=== PATIENT | male | born 1965 | race Two or more races ===

== ENCOUNTER 2016-05-16 10:47 | Inpatient (IN) | payer SELFPAY ==
[2016-05-16] VITALS (21 sets, daily range): BP systolic 104–128; BP diastolic 66–95
[~2016-05-16] VITALS: Ht 177.8 cm; Wt 74.8 kg
[~2016-05-16 10:47] MED LIST: ATOR10TA PO; HYDR-429 PO; LORA1TAB82 PO; LOSA25TA13 PO; METF500T4 PO; NPH,100V8 SQ; TRAZ-147 PO
[2016-05-16] MEDS ORDERED: IV NS 0.9% 1,000 ML BAG IV ONE (11:00)
[2016-05-16 11:17] LABS: BASOPHILS % (AUTO) 0.2 % (0.0-2.0); DIFF TOTAL % 100 %; HEMATOCRIT 55 % (39-51); HEMOGLOBIN 18.4 g/dL (13.5-17.5); LYMPHOCYTES # (AUTO) 1.9 /CMM (0.8-4.8); LYMPHOCYTES % (AUTO) 34.7 % (20.0-44.0); MEAN CORPUSCULAR HEMOGLOBIN 35 PG (26.0-33.0); MEAN CORPUSCULAR HGB CONC 34 g/dl (31.0-36.0); MEAN CORPUSCULAR VOLUME 103 fL (80-96); MONOCYTES # (AUTO) 0.2 /CMM (0.1-1.30); NEUTROPHILS # (AUTO) 3.3 /CMM (1.8-8.9); NEUTROPHILS % (AUTO) 61.1 % (43.0-81.0); PLATELET COUNT (AUTO) 172 /CMM (150-450); RED BLOOD CELL COUNT(AUTO) 5.33 MIL/uL (4.5-6.0); WHITE BLOOD COUNT (AUTO) 5.4 K/uL (4.3-11.0)
[2016-05-16] MEDS ORDERED: IV SET PRIMARY 1 EA INFUS.SET MC ONE (11:17)
[2016-05-16] MEDS ORDERED: IV NS 0.9% 1,000 ML ONE (11:17)
[2016-05-16 11:32] LABS: BILIRUBIN,DIRECT 2.3 mg/dL (0.0-0.2); BILIRUBIN,TOTAL 3.1 mg/dL (0.2-1.0); CREATININE 0.9 mg/dL (0.6-1.3)
[2016-05-16 11:33] LABS: INDIRECT BILIRUBIN 0.8 mg/dL (0.0-1.1)
[2016-05-16 11:34] LABS: POTASSIUM 4.8 mmol/L (3.5-5.1); TROPONIN I 0.036 ng/mL (0.00-0.056)
[2016-05-16 11:35] LABS: TOTAL PROTEIN, SERUM 8.9 g/dL (6.4-8.2)
[2016-05-16 11:44] LABS: CALCIUM, SERUM 8.1 mg/dL (8.5-10.1)
[2016-05-16 11:46] LABS: BAND % (MANUAL) 1 % (0.0-5.0); EOSINOPHILS % (MANUAL) 1 % (0-4); LYMPHOCYTES % (MANUAL) 33 % (16-48); PLATELET ESTIMATE ADEQUATE
[2016-05-16 11:47] LABS: ANISOCYTOSIS 1+
[2016-05-16 11:48] LABS: INR 1.1 (0.87-1.13); PROTHROMBIN TIME 11.5 SECS (9.5-12.7)
[2016-05-16] MEDS ORDERED: INSULIN REGULAR, HUMAN 100 UNIT in IV NS 0.9% 99 ML IV PRN ×2 (12:00)
[2016-05-16] MEDS ORDERED: FAMO40TA7 PO (12:04)
[2016-05-16] MEDS ORDERED: IV SET PRIMARY PUMP SET 1 EA INFUS.SET MC ONE ×3 (12:09→18:13)
[2016-05-16] MEDS ORDERED: IV NS 0.9% 1,000 ML IV PRN (12:13)
[2016-05-16 12:30] LABS: PHOSPHORUS 5.2 mg/dL (2.5-4.9)
[2016-05-16] MEDS ORDERED: ONDANSETRON HCL/PF 4 MG/2 ML VIAL IVP PRN (12:30)
[2016-05-16] MEDS ORDERED: Z GUARD REMEDY 2 OZ OINT TP PRN (12:30)
[2016-05-16] MEDS ORDERED: ACETAMINOPHEN 325 MG TABLET PO PRN (12:30)
[2016-05-16] MEDS ORDERED: MAG HYDROX/AL HYDROX/SIMETH 30 ML UDC PO PRN (12:30)
[2016-05-16] MEDS ORDERED: MAGNESIUM HYDROXIDE 30 ML UDC PO PRN (12:30)
[2016-05-16] MEDS: ENOXAPARIN SODIUM 40 MG/0.4 ML DISP.SYRIN SQ SCH (13:39)
[2016-05-16] MEDS: BLOOD SUGAR DIAGNOSTIC 1 EACH STRIP IN SCH ×7 (16:16→23:24)
[2016-05-16] MEDS: IV D5/ 0.9% NACL 1,000 ML IV PRN (17:30)
[2016-05-16 17:51] LABS: CALCIUM, SERUM 7.7 mg/dL (8.5-10.1); CREATININE 0.7 mg/dL (0.6-1.3); PHOSPHORUS 2.5 mg/dL (2.5-4.9); POTASSIUM 3.8 mmol/L (3.5-5.1)
[2016-05-16] MEDS ORDERED: SECONDARY IV SET 1 EA INFUS.SET MC ONE (18:14)
[2016-05-16] MEDS ORDERED: AMIODARONE 900 MG in IV D5W 482 ML IV PRN (18:30)
[2016-05-16] MEDS ORDERED: AMIODARONE 150 MG in IV D5W 100 ML IV ONE (18:30)
[2016-05-16] MEDS: Magnesium 1GM/D5W 100ML PREMIX 100 ML IV SCH ×2 (18:38→20:04)
[2016-05-16] MEDS: LORAZEPAM INJ 2 MG/ML VIAL IV PRN (19:55)
[2016-05-16] MEDS: HYDROCODONE/APAP 5/325MG 1 EACH TABLET PO PRN (20:04)
[2016-05-16] MEDS: INS (REG) DRIP 100 U/100 ML NS IV PRN ×6 (20:20→22:24)
[2016-05-17] VITALS (32 sets, daily range): BP systolic 111–144; BP diastolic 62–90
[2016-05-17] MEDS: ZOLPIDEM TARTRATE 5 MG TABLET PO PRN (00:07)
[2016-05-17] MEDS: BLOOD SUGAR DIAGNOSTIC 1 EACH STRIP IN SCH ×9 (00:07→09:11)
[2016-05-17] MEDS: IV D5/ 0.9% NACL 1,000 ML IV PRN ×2 (01:58→08:59)
[2016-05-17] MEDS ORDERED: LORAZEPAM INJ 2 MG/ML VIAL IVP PRN (02:00)
[2016-05-17] MEDS: LORAZEPAM INJ 2 MG/ML VIAL IV PRN (02:05)
[2016-05-17 05:22] LABS: CALCIUM, SERUM 7.7 mg/dL (8.5-10.1); CREATININE 0.7 mg/dL (0.6-1.3); PHOSPHORUS 2.5 mg/dL (2.5-4.9); POTASSIUM 3.5 mmol/L (3.5-5.1)
[2016-05-17 05:24] LABS: THYROID STIMULATING HORMONE 2.187 uIU/mL (0.358-3.74)
[2016-05-17 05:52] LABS: BASOPHILS % (AUTO) 0.8 % (0.0-2.0); DIFF TOTAL % 100 %; EOSINOPHILS # (AUTO) 0.1 /CMM (0.0-0.7); EOSINOPHILS % (AUTO) 1.7 % (0.0-6.0); HEMATOCRIT 38 % (39-51); HEMOGLOBIN 13.5 g/dL (13.5-17.5); LYMPHOCYTES # (AUTO) 1.9 /CMM (0.8-4.8); LYMPHOCYTES % (AUTO) 30.2 % (20.0-44.0); MEAN CORPUSCULAR HEMOGLOBIN 35 PG (26.0-33.0); MEAN CORPUSCULAR HGB CONC 35 g/dl (31.0-36.0); MEAN CORPUSCULAR VOLUME 100 fL (80-96); MONOCYTES # (AUTO) 0.4 /CMM (0.1-1.30); MONOCYTES % (AUTO) 6.8 % (2.0-12.0); NEUTROPHILS # (AUTO) 3.7 /CMM (1.8-8.9); NEUTROPHILS % (AUTO) 60.5 % (43.0-81.0); PLATELET COUNT (AUTO) 94 /CMM (150-450); RED BLOOD CELL COUNT(AUTO) 3.82 MIL/uL (4.5-6.0); WHITE BLOOD COUNT (AUTO) 6.2 K/uL (4.3-11.0)
[2016-05-17] MEDS ORDERED: POTASSIUM CHLORIDE 10 MEQ/50 ML PREMIXED IVPB FOR PERIPHERAL LINE IV ONE (06:00)
[2016-05-17] MEDS ORDERED: POTASSIUM CL. PREMIX PERIPHER. 50 ML ONE (06:14)
[2016-05-17] MEDS ORDERED: IV SET PRIMARY PUMP SET 1 EA INFUS.SET MC ONE (06:29)
[2016-05-17 06:31] LABS: BAND % (MANUAL) 2 % (0.0-5.0); EOSINOPHILS % (MANUAL) 5 % (0-4); LYMPHOCYTES % (MANUAL) 28 % (16-48)
[2016-05-17 06:32] LABS: PLATELET ESTIMATE DECREASED
[2016-05-17] MEDS: PANTOPRAZOLE 40 MG TABLET.DR PO SCH (07:42)
[2016-05-17] MEDS: ENOXAPARIN SODIUM 40 MG/0.4 ML DISP.SYRIN SQ SCH (08:29)
[2016-05-17] MEDS ORDERED: DEXTROSE 50%-WATER 50 ML DISP.SYRIN IV PRN (10:30)
[2016-05-17 12:00] LABS: CALCIUM, SERUM 7.9 mg/dL (8.5-10.1); CREATININE 0.8 mg/dL (0.6-1.3); POTASSIUM 3.9 mmol/L (3.5-5.1)
[2016-05-17] MEDS: BLOOD SUGAR DIAGNOSTIC 1 EACH STRIP VI SCH ×3 (12:04→21:54)
[2016-05-17] MEDS: INSULIN REGULAR, HUMAN 100 UNIT/ML 3 ML VIAL SQ PRN ×2 (12:10→17:28)
[2016-05-17] MEDS: LORAZEPAM 1 MG TABLET PO PRN ×2 (13:20→23:08)
[2016-05-17] MEDS: METFORMIN 500 MG TABLET PO SCH (18:07)
[2016-05-17] MEDS ORDERED: LOSARTAN POTASSIUM 25 MG TABLET PO SCH (18:30)
[2016-05-17] MEDS ORDERED: ATORVASTATIN 10 MG TABLET PO SCH (18:30)
[2016-05-17] MEDS ORDERED: INSULIN DETEMIR 100 UNIT/ML CARTRIDGE SQ ONE (21:53)
[2016-05-17] MEDS: ATORVASTATIN 10 MG TABLET PO SCH (21:53)
[2016-05-17] MEDS: TRAZODONE 50 MG TABLET PO SCH (21:53)
[2016-05-17] MEDS ORDERED: INSULIN REGULAR, HUMAN 100 UNIT/ML 10 ML VIAL ONE (21:53)
[2016-05-17] MEDS: INSULIN DETEMIR 100 UNIT/ML CARTRIDGE SQ SCH (23:10)
[2016-05-17] MEDS: *INSULIN REGULAR(HUMULIN R)HUM 100 UNIT/ML VIAL SQ PRN (23:12)
[2016-05-18] VITALS (8 sets, daily range): BP systolic 103–125; BP diastolic 56–78
[2016-05-18] MEDS: ZOLPIDEM TARTRATE 5 MG TABLET PO PRN (01:12)
[2016-05-18] MEDS: BLOOD SUGAR DIAGNOSTIC 1 EACH STRIP VI SCH ×4 (06:59→21:41)
[2016-05-18] MEDS: INSULIN REGULAR, HUMAN 100 UNIT/ML 3 ML VIAL SQ PRN ×3 (07:01→17:27)
[2016-05-18] MEDS: PANTOPRAZOLE 40 MG TABLET.DR PO SCH (09:01)
[2016-05-18] MEDS: LOSARTAN POTASSIUM 25 MG TABLET PO SCH (09:02)
[2016-05-18] MEDS: ATORVASTATIN 10 MG TABLET PO SCH (09:02)
[2016-05-18] MEDS: LORAZEPAM 1 MG TABLET PO PRN (09:02)
[2016-05-18] MEDS: METFORMIN 500 MG TABLET PO SCH ×2 (09:02→17:27)
[2016-05-18] MEDS: ENOXAPARIN SODIUM 40 MG/0.4 ML DISP.SYRIN SQ SCH (09:04)
[2016-05-18] MEDS: HYDROCODONE/APAP 10/325MG 1 EA TABLET PO PRN (15:07)
[2016-05-18] MEDS ORDERED: APIXABAN 2.5 MG TABLET PO SCH (17:00)
[2016-05-18] MEDS: TRAZODONE 50 MG TABLET PO SCH (21:40)
[2016-05-18] MEDS: INSULIN DETEMIR 100 UNIT/ML CARTRIDGE SQ SCH (21:48)
[2016-05-18] MEDS: *INSULIN REGULAR(HUMULIN R)HUM 100 UNIT/ML VIAL SQ PRN (21:51)
[2016-05-18] MEDS: HYDROCODONE/APAP 5/325MG 1 EACH TABLET PO PRN (23:54)
[2016-05-19] VITALS (8 sets, daily range): BP systolic 90–115; BP diastolic 47–75
[2016-05-19] MEDS ORDERED: AMIODARONE HCL 200 MG TABLET PO ONE (01:30)
[2016-05-19] MEDS ORDERED: AMIODARONE HCL 200 MG TABLET ONE ×2 (01:37→02:14)
[2016-05-19] MEDS ORDERED: AMIODARONE HCL 200 MG TABLET PO STA (02:14)
[2016-05-19] MEDS ORDERED: DIGOXIN 0.25 MG TABLET ONE (02:39)
[2016-05-19] MEDS ORDERED: DIGOXIN 0.25 MG TABLET PO STA (02:39)
[2016-05-19] MEDS ORDERED: AMIODARONE 150 MG/3 ML VIAL IV ONE (04:10)
[2016-05-19] MEDS ORDERED: IV SET PRIMARY PUMP SET 1 EA INFUS.SET MC ONE (04:11)
[2016-05-19] MEDS: HYDROCODONE/APAP 5/325MG 1 EACH TABLET PO PRN (04:25)
[2016-05-19] MEDS: AMIODARONE 900 MG in IV D5W 482 ML IV PRN ×2 (04:45→10:17)
[2016-05-19] MEDS: PANTOPRAZOLE 40 MG TABLET.DR PO SCH (06:30)
[2016-05-19] MEDS: BLOOD SUGAR DIAGNOSTIC 1 EACH STRIP VI SCH ×4 (06:34→21:26)
[2016-05-19] MEDS: INSULIN REGULAR, HUMAN 100 UNIT/ML 3 ML VIAL SQ PRN ×2 (06:34→21:18)
[2016-05-19 08:09] LABS: BASOPHILS % (AUTO) 0.1 % (0.0-2.0); DIFF TOTAL % 100 %; EOSINOPHILS % (AUTO) 0.2 % (0.0-6.0); HEMATOCRIT 36 % (39-51); HEMOGLOBIN 12.6 g/dL (13.5-17.5); LYMPHOCYTES # (AUTO) 0.3 /CMM (0.8-4.8); MEAN CORPUSCULAR HEMOGLOBIN 35 PG (26.0-33.0); MEAN CORPUSCULAR HGB CONC 35 g/dl (31.0-36.0); MEAN CORPUSCULAR VOLUME 100 fL (80-96); MONOCYTES # (AUTO) 0.1 /CMM (0.1-1.30); MONOCYTES % (AUTO) 1.7 % (2.0-12.0); NEUTROPHILS # (AUTO) 5.1 /CMM (1.8-8.9); RED BLOOD CELL COUNT(AUTO) 3.58 MIL/uL (4.5-6.0); WHITE BLOOD COUNT (AUTO) 5.5 K/uL (4.3-11.0)
[2016-05-19 08:11] LABS: PLATELET COUNT (AUTO) 44 /CMM (150-450)
[2016-05-19] MEDS: LOSARTAN POTASSIUM 25 MG TABLET PO SCH (08:13)
[2016-05-19] MEDS: LORAZEPAM 1 MG TABLET PO PRN ×2 (08:15→18:08)
[2016-05-19] MEDS: METFORMIN 500 MG TABLET PO SCH ×2 (08:15→17:03)
[2016-05-19] MEDS: ENOXAPARIN SODIUM 40 MG/0.4 ML DISP.SYRIN SQ SCH (08:18)
[2016-05-19 08:19] LABS: CALCIUM, SERUM 7.9 mg/dL (8.5-10.1); POTASSIUM 3.8 mmol/L (3.5-5.1)
[2016-05-19] MEDS: ATORVASTATIN 10 MG TABLET PO SCH (08:29)
[2016-05-19] MEDS ORDERED: AMIODARONE 150 MG in IV D5W 100 ML IV ONE (09:30)
[2016-05-19] MEDS ORDERED: HYDROGEL DRESSING 90 GM TUBE TP PRN (10:00)
[2016-05-19] MEDS: HYDROGEL DRESSING 90 GM TUBE TP SCH ×2 (10:31→21:51)
[2016-05-19 11:27] LABS: BAND % (MANUAL) 9 % (0.0-5.0); EOSINOPHILS % (MANUAL) 1 % (0-4); LYMPHOCYTES % (MANUAL) 8 % (16-48); PLATELET ESTIMATE DECREASED
[2016-05-19] MEDS: HYDROCODONE/APAP 10/325MG 1 EA TABLET PO PRN (14:58)
[2016-05-19] MEDS: *INSULIN REGULAR(HUMULIN R)HUM 100 UNIT/ML VIAL SQ PRN (18:12)
[2016-05-19] MEDS: TRAZODONE 50 MG TABLET PO SCH (21:10)
[2016-05-19] MEDS: INSULIN DETEMIR 100 UNIT/ML CARTRIDGE SQ SCH (21:19)
[2016-05-20] VITALS: BP 101/56
[2016-05-20] MEDS: HYDROCODONE/APAP 5/325MG 1 EACH TABLET PO PRN ×4 (03:04→21:31)
[2016-05-20 04:00] VITALS: BP 97/55
[2016-05-20 06:58] LABS: BASOPHILS % (AUTO) 0.1 % (0.0-2.0); DIFF TOTAL % 100 %; EOSINOPHILS % (AUTO) 0.4 % (0.0-6.0); HEMATOCRIT 40 % (39-51); HEMOGLOBIN 13.8 g/dL (13.5-17.5); LYMPHOCYTES # (AUTO) 0.6 /CMM (0.8-4.8); LYMPHOCYTES % (AUTO) 8.8 % (20.0-44.0); MEAN CORPUSCULAR HEMOGLOBIN 35 PG (26.0-33.0); MEAN CORPUSCULAR HGB CONC 35 g/dl (31.0-36.0); MEAN CORPUSCULAR VOLUME 100 fL (80-96); MONOCYTES # (AUTO) 0.5 /CMM (0.1-1.30); MONOCYTES % (AUTO) 8.1 % (2.0-12.0); NEUTROPHILS # (AUTO) 5.4 /CMM (1.8-8.9); NEUTROPHILS % (AUTO) 82.6 % (43.0-81.0); PLATELET COUNT (AUTO) 86 /CMM (150-450); RED BLOOD CELL COUNT(AUTO) 3.95 MIL/uL (4.5-6.0); WHITE BLOOD COUNT (AUTO) 6.5 K/uL (4.3-11.0)
[2016-05-20 07:06] LABS: INR 1.11 (0.87-1.13)
[2016-05-20 08:00] VITALS: BP 114/62
[2016-05-20] MEDS: METFORMIN 500 MG TABLET PO SCH ×2 (08:24→16:11)
[2016-05-20] MEDS: PANTOPRAZOLE 40 MG TABLET.DR PO SCH (08:24)
[2016-05-20] MEDS: ENOXAPARIN SODIUM 40 MG/0.4 ML DISP.SYRIN SQ SCH (08:24)
[2016-05-20] MEDS: BLOOD SUGAR DIAGNOSTIC 1 EACH STRIP VI SCH ×4 (08:25→22:00)
[2016-05-20 09:29] LABS: ALBUMIN 2.9 g/dL (3.4-5.0); BILIRUBIN,TOTAL 1.3 mg/dL (0.2-1.0); CALCIUM, SERUM 8.3 mg/dL (8.5-10.1); CREATININE 0.9 mg/dL (0.6-1.3); POTASSIUM 3.2 mmol/L (3.5-5.1); TOTAL PROTEIN, SERUM 6.6 g/dL (6.4-8.2)
[2016-05-20] MEDS: INSULIN REGULAR, HUMAN 100 UNIT/ML 3 ML VIAL SQ PRN ×3 (11:24→21:38)
[2016-05-20 12:00] VITALS: BP 118/71
[2016-05-20] MEDS: AMIODARONE HCL 200 MG TABLET PO SCH ×3 (12:00→21:17)
[2016-05-20] MEDS: LORAZEPAM 1 MG TABLET PO PRN ×2 (12:57→21:19)
[2016-05-20] MEDS ORDERED: POTASSIUM CHLORIDE 20 MEQ TAB.PRT.SR PO ONE (13:00)
[2016-05-20 16:00] VITALS: BP 119/66
[2016-05-20 20:00] VITALS: BP 92/44
[2016-05-20] MEDS: TRAZODONE 50 MG TABLET PO SCH (21:23)
[2016-05-20] MEDS: INSULIN DETEMIR 100 UNIT/ML CARTRIDGE SQ SCH (21:34)
[2016-05-21] VITALS: BP 111/64
[2016-05-21] MEDS: HYDROCODONE/APAP 10/325MG 1 EA TABLET PO PRN ×2 (03:12→11:07)
[2016-05-21 04:00] VITALS: BP 115/56
[2016-05-21] MEDS: LORAZEPAM 1 MG TABLET PO PRN (06:56)
[2016-05-21 07:19] LABS: BASOPHILS % (AUTO) 0.3 % (0.0-2.0); DIFF TOTAL % 100 %; EOSINOPHILS # (AUTO) 0.1 /CMM (0.0-0.7); EOSINOPHILS % (AUTO) 3.6 % (0.0-6.0); HEMATOCRIT 40 % (39-51); HEMOGLOBIN 14.2 g/dL (13.5-17.5); LYMPHOCYTES # (AUTO) 0.7 /CMM (0.8-4.8); LYMPHOCYTES % (AUTO) 18.9 % (20.0-44.0); MEAN CORPUSCULAR HEMOGLOBIN 35 PG (26.0-33.0); MEAN CORPUSCULAR HGB CONC 35 g/dl (31.0-36.0); MEAN CORPUSCULAR VOLUME 100 fL (80-96); MONOCYTES # (AUTO) 0.5 /CMM (0.1-1.30); MONOCYTES % (AUTO) 12.6 % (2.0-12.0); NEUTROPHILS # (AUTO) 2.4 /CMM (1.8-8.9); NEUTROPHILS % (AUTO) 64.6 % (43.0-81.0); PLATELET COUNT (AUTO) 121 /CMM (150-450); RED BLOOD CELL COUNT(AUTO) 4.05 MIL/uL (4.5-6.0); WHITE BLOOD COUNT (AUTO) 3.7 K/uL (4.3-11.0)
[2016-05-21] MEDS: BLOOD SUGAR DIAGNOSTIC 1 EACH STRIP VI SCH (07:30)
[2016-05-21 07:45] LABS: CALCIUM, SERUM 8.4 mg/dL (8.5-10.1); POTASSIUM 3.7 mmol/L (3.5-5.1)
[2016-05-21 08:00] VITALS: BP 100/64
[2016-05-21 08:41] LABS: CREATININE 0.8 mg/dL (0.6-1.3)
[2016-05-21] MEDS: HYDROGEL DRESSING 90 GM TUBE TP SCH (09:00)
[2016-05-21] MEDS: METFORMIN 500 MG TABLET PO SCH (10:22)
[2016-05-21] MEDS: AMIODARONE HCL 200 MG TABLET PO SCH (10:24)
[2016-05-21] MEDS: PANTOPRAZOLE 40 MG TABLET.DR PO SCH (10:25)
[2016-05-21] MEDS: ENOXAPARIN SODIUM 40 MG/0.4 ML DISP.SYRIN SQ SCH (10:33)
[2016-05-21] MEDS ORDERED: METF500T4 PO (11:07)
[2016-05-21] MEDS ORDERED: AMIO200T PO (11:07)
[2016-05-21 12:00] VITALS: BP 114/69
== END 2016-05-21 15:54 | disposition home or self-care (01) | DRG 637 ==
LOC: ER 10:47 → ICU 12:55 → MED 05-17 18:27 → TELE 05-17 18:38 → TELE-TD 05-19 03:40 → TELE1 05-20 11:43
DX: E13.10 Other specified diabetes mellitus with ketoacidosis without coma (principal); G93.41 Metabolic encephalopathy; I48.92 Unspecified atrial flutter; E87.1 Hypo-osmolality and hyponatremia; E78.5 Hyperlipidemia, unspecified; D53.9 Nutritional anemia, unspecified; D69.6 Thrombocytopenia, unspecified; D72.825 Bandemia; E83.42 Hypomagnesemia; E83.51 Hypocalcemia; E87.6 Hypokalemia; F10.20 Alcohol dependence, uncomplicated; F32.9 Major depressive disorder, single episode, unspecified; I10 Essential (primary) hypertension; K76.0 Fatty (change of) liver, not elsewhere classified; Z79.4 Long term (current) use of insulin; Z86.73 Personal history of transient ischemic attack (TIA), and cerebral infarction without residual deficits; I48.0 Paroxysmal atrial fibrillation; R53.1 Weakness; R74.0 Nonspecific elevation of levels of transaminase and lactic acid dehydrogenase [LDH]; F99 Mental disorder, not otherwise specified; I70.0 Atherosclerosis of aorta
CPT/HCPCS: 36415; 70450-TC; 71010-TC; 76705-TC; 80048-TC; 80053-TC; 80061-TC; 80076-TC; 82746; 82962-TC; 83735-TC; 84100-TC; 84443-TC; 84484-TC; 85025-TC; 85610-TC; 85730-TC; 87081-TC; 93307-TC; 97001-TC; 97116-TC; 97530-TC; A4606; A6248; A6402; J0282; J1650; J1815; J2060; J2405; J3475; J3480; J7030; J7042; J7060; Z7610

== ENCOUNTER 2019-03-15 19:49 | Emergency (ER) | payer MEDICAID, OTHER ==
[~2019-03-15] VITALS: Ht 182.9 cm; Wt 79.4 kg
[~2019-03-15 19:49] MED LIST changes: +AMIO200T PO; +FAMO40TA7 PO; -HYDR-429 PO; +HYDR-4354 PO; +LORA-259 PO; -LORA1TAB82 PO; -LOSA25TA13 PO; +METF-440 PO; -METF500T4 PO; -NPH,100V8 SQ; +NPH.100V2 SQ; -TRAZ-147 PO; +TRAZ-214 PO
--- NOTE | 2019-03-15 20:19 | NUR ---
PT BIB [facility] WITH A C/O ALCOHOL INTOXICATION AND ELEVATED BLOOD SUGAR. ACCUCHECK DONE AND PT'S BLOOD SUGAR IS 428. DR WARNER WAS NOTIFIED. PT HAS AN 18G IV IN LAC. 500 NS INFUSING IN THE FIELD. PT WAS PLACED ON THE MONITOR AND CONTINUOUS PULSE OX.
[2019-03-15] MEDS ORDERED: LORAZEPAM INJ 2 MG/ML VIAL IVP ONE (20:30)
[2019-03-15] MEDS ORDERED: IV NS 0.9% 1,000 ML BAG IV ONE (20:30)
[2019-03-15] MEDS ORDERED: LORAZEPAM INJ 2 MG/ML VIAL ONE (20:31)
[2019-03-15 20:54] LABS: BASOPHILS # (AUTO) 0.1 /CMM (0.0-0.2); BASOPHILS % (AUTO) 1.1 % (0.0-2.0); EOSINOPHILS % (AUTO) 2.6 % (0.0-6.0); HEMATOCRIT 45 % (39-51); HEMOGLOBIN 15.4 g/dL (13.5-17.5); LYMPHOCYTES % (AUTO) 29.2 % (20.0-44.0); MEAN CORPUSCULAR HGB CONC 34 g/dl (31.0-36.0); MEAN CORPUSCULAR VOLUME 96 fL (80-96); MONOCYTES # (AUTO) 0.5 /CMM (0.1-1.30); MONOCYTES % (AUTO) 7.9 % (2.0-12.0); NEUTROPHILS % (AUTO) 59.2 % (43.0-81.0); PLATELET COUNT (AUTO) 161 /CMM (150-450); RED BLOOD CELL COUNT(AUTO) 4.68 MIL/uL (4.5-6.0); WHITE BLOOD COUNT (AUTO) 6.8 K/uL (4.3-11.0)
--- NOTE | 2019-03-15 21:03 | NUR ---
NOTED PT IV ON LEFT AC 18 BLEEDING, IV REMOVED, IV CATHETER INTACT, PRESSURE GAUZE APPLIED. NO ACTIVE BLEEDING NOTED.
[2019-03-15 21:08] LABS: ALANINE AMINOTRANSFERASE 30 U/L (12-78); ALBUMIN 3.8 g/dL (3.4-5.0); ALKALINE PHOSPHATASE 137 U/L (46-116); ASPARTATE AMINOTRANSFERASE 21 U/L (15-37); BILIRUBIN,DIRECT 0.1 mg/dL (0.0-0.2); BILIRUBIN,TOTAL 0.2 mg/dL (0.2-1.0); CALCIUM, SERUM 8.6 mg/dL (8.5-10.1); CARBON DIOXIDE 22 mmol/L (21-32); CHLORIDE 96 mmol/L (98-107); POTASSIUM 3.8 mmol/L (3.5-5.1); SALICYLATE 6.7 mg/dL (2.8-20.0); SODIUM SERUM 134 mmol/L (136-145); TOTAL PROTEIN, SERUM 7.6 g/dL (6.4-8.2); UREA NITROGEN, BLOOD 12 mg/dL (7-18)
[2019-03-15 21:09] LABS: ACETAMINOPHEN < 2 ug/ml (10-30); GLUCOSE 424 mg/dL (74-106)
--- NOTE | 2019-03-15 21:15 | NUR ---
PER DR. WARNER, PT DOES NOT NEED URINE SAMPLE AT THIS TIME.
[2019-03-15 21:16] LABS: ALCOHOL, BLOOD 285 mg/dL (0-0)
--- NOTE | 2019-03-15 23:30 | NUR ---
PT IN BED SLEEPING, -SOB, NAD NOTED, PT ON MONITOR, VSS
[2019-03-16 06:30] VITALS: BP 121/84
== END 2019-03-16 06:31 | disposition home or self-care (01) ==
LOC: ER 19:54
DX: F10.129 Alcohol abuse with intoxication, unspecified (principal); E11.65 Type 2 diabetes mellitus with hyperglycemia; I10 Essential (primary) hypertension; E78.5 Hyperlipidemia, unspecified; F17.200 Nicotine dependence, unspecified, uncomplicated; Z98.890 Other specified postprocedural states; Z79.899 Other long term (current) drug therapy; Z79.4 Long term (current) use of insulin; Z79.84 Long term (current) use of oral hypoglycemic drugs; Y90.8 Blood alcohol level of 240 mg/100 ml or more
CPT/HCPCS: 36415; 80048; 80076; 80307; 80329; 82962; 85025; 96361; 96374; 99283; G0480; J2060; J7030

== ENCOUNTER 2020-01-05 22:42 | Emergency (ER) | payer OTHER ==
[~2020-01-05] VITALS: Ht 182.9 cm; Wt 74.8 kg
[~2020-01-05 22:42] MED LIST changes: -TRAZ-214 PO; +TRAZ-257 PO
--- NOTE | 2020-01-05 23:02 | NUR ---
SITE OF WOUND IS BEING CLEANED BY TECH.
--- NOTE | 2020-01-05 23:05 | NUR ---
BLOOD DRAWN AND SENT TO LAB.
[2020-01-05] MEDS: IV NS 0.9% 1,000 ML BAG IV ONE (23:07)
[2020-01-05] MEDS ORDERED: Magnesium 1GM/D5W 100ML PREMIX 100 ML IV STA (23:08)
[2020-01-05 23:10] LABS: BASOPHILS % (AUTO) 0.5 % (0.0-2.0); EOSINOPHILS % (AUTO) 2.3 % (0.0-6.0); HEMATOCRIT 40 % (39-51); HEMOGLOBIN 13.3 g/dL (13.5-17.5); LYMPHOCYTES # (AUTO) 1.7 /CMM (0.8-4.8); LYMPHOCYTES % (AUTO) 28.4 % (20.0-44.0); MEAN CORPUSCULAR HGB CONC 33 g/dl (31.0-36.0); MEAN CORPUSCULAR VOLUME 100 fL (80-96); MONOCYTES # (AUTO) 0.6 /CMM (0.1-1.30); MONOCYTES % (AUTO) 9.2 % (2.0-12.0); NEUTROPHILS # (AUTO) 3.6 /CMM (1.8-8.9); NEUTROPHILS % (AUTO) 59.6 % (43.0-81.0); PLATELET COUNT (AUTO) 198 /CMM (150-450); RED BLOOD CELL COUNT(AUTO) 4.02 MIL/uL (4.5-6.0)
--- NOTE | 2020-01-05 23:10 | NUR ---
PATIENT CAME TO ER BED 11 BIB [facility] C/O GLF WITNESSED BY FRIEND. PATIENT WAS BLEEDING FROM POSTERIOR LEFT SIDE OF HEAD. 5 PRASANNA STILL INTACT FROM PREVIOUS UNKNOWN PROCEDURE. PATIENT DOES NOT REMEMBER WHAT KIND OF ALCOHOL HE DRANK. PATIENT IS AAOX4, ABLE TO CONFIRM NAME, BIRTHDATE, YEAR, PRESIDENT. NO SOB. BREATHING EVENLY AND UNLABORED ON ROOM AIR. CONNECTED TO MONITOR. Addendum: 01/05/20 at 2316 by AAKASH PATIENT DENIES LOSING CONSCIOUSNESS.
[2020-01-05] MEDS ORDERED: Magnesium 1GM/D5W 100ML PREMIX 100 ML IV ONE (23:15)
--- NOTE | 2020-01-05 23:20 | NUR ---
PATIENT TAKEN TO CT VIA CRAIG
[2020-01-05 23:28] LABS: ALKALINE PHOSPHATASE 125 U/L (46-116); BILIRUBIN,DIRECT 0.1 mg/dL (0.0-0.2); BILIRUBIN,TOTAL 0.3 mg/dL (0.2-1.0); CALCIUM, SERUM 8.3 mg/dL (8.5-10.1); CARBON DIOXIDE 23 mmol/L (21-32); CHLORIDE 94 mmol/L (98-107); CREATININE 1.6 mg/dL (0.6-1.3); GLUCOSE 325 mg/dL (74-106); POTASSIUM 4.4 mmol/L (3.5-5.1); SODIUM SERUM 131 mmol/L (136-145); UREA NITROGEN, BLOOD 23 mg/dL (7-18)
[2020-01-05 23:29] LABS: ALANINE AMINOTRANSFERASE 30 U/L (12-78); ALBUMIN 3.5 g/dL (3.4-5.0); ASPARTATE AMINOTRANSFERASE 48 U/L (15-37); LIPASE 34 U/L (73-393); TOTAL PROTEIN, SERUM 7.8 g/dL (6.4-8.2)
[2020-01-05] MEDS: Magnesium 1GM/D5W 100ML PREMIX PIGGYBACK IV ONE (23:55)
[2020-01-06] MEDS ORDERED: Magnesium 1GM/D5W 100ML PREMIX 100 ML IV ONE (00:24)
--- NOTE | 2020-01-06 04:17 | NUR ---
PATIENT IS AWAKE, WALKED WITH A WALKER TO THE RESTROOM WITH A STEADY GAIT.
[2020-01-06] MEDS ORDERED: MAG HYDROX/AL HYDROX/SIMETH 30 ML UDC ONE (05:50)
[2020-01-06] MEDS ORDERED: LIDOCAINE VISCOUS 2% UD 15 ML UDC ONE (05:51)
--- NOTE | 2020-01-06 05:53 | NUR ---
IV removed. Catheter intact and site benign. Pressure and 4x4 applied to site. No bleeding noted.
[2020-01-06 05:56] VITALS: BP 94/66
[2020-01-06] MEDS: MAG HYDROX/AL HYDROX/SIMETH 30 ML UDC PO ONE (05:56)
[2020-01-06] MEDS: LIDOCAINE VISCOUS 2% UD 15 ML UDC MM ONE (05:56)
--- NOTE | 2020-01-06 05:56 | NUR ---
Patient discharged to home in stable condition. Written and verbal after care instructions given. Patient verbalizes understanding of instruction.
== END 2020-01-06 05:57 | disposition home or self-care (01) ==
LOC: EDBD 22:44 → MERGE 22:44 → ER 22:44
DX: S01.01XA Laceration without foreign body of scalp, initial encounter (principal); F10.129 Alcohol abuse with intoxication, unspecified; I48.92 Unspecified atrial flutter; R51 Headache; M54.2 Cervicalgia; R00.0 Tachycardia, unspecified; I44.30 Unspecified atrioventricular block; Y90.6 Blood alcohol level of 120-199 mg/100 ml; W01.0XXA Fall on same level from slipping, tripping and stumbling without subsequent striking against object, initial encounter; Y93.89 Activity, other specified; Y92.89 Other specified places as the place of occurrence of the external cause; Y99.8 Other external cause status
CPT/HCPCS: 36415; 70450; 71045; 72125; 80048; 80076; 80307; 83690; 84484; 85025; 93005; 96361; 96365; 99285; A6403; J3475 ×2; J7030 ×2; G0480